=== PATIENT | female | born 1990 | race Caucasian/White ===

== ENCOUNTER 2018-02-01 19:09 | Emergency (ER) | payer BC ==
[~2018-02-01] VITALS: Ht 157.5 cm; Wt 62.6 kg
[2018-02-01 19:15] VITALS: BP 118/55
[2018-02-01] MEDS ORDERED: KETOROLAC 60 MG/2 ML VIAL IM ONE (20:00)
[2018-02-01 20:25] VITALS: BP 105/69
== END 2018-02-01 20:24 | disposition home or self-care (01) ==
LOC: MED 19:09
DX: S13.4XXA Sprain of ligaments of cervical spine, initial encounter (principal); V89.2XXA Person injured in unspecified motor-vehicle accident, traffic, initial encounter; Y93.89 Activity, other specified; Y92.410 Unspecified street and highway as the place of occurrence of the external cause; Y99.8 Other external cause status
CPT/HCPCS: 81002; 81025; 96372; 99283; J1885